=== PATIENT | female | born 1945 | race Two or more races ===

== ENCOUNTER 2021-12-09 20:32 | Emergency (ER) | payer OTHER ==
[~2021-12-09] VITALS: Ht 160 cm; Wt 50.7 kg
[2021-12-09] MEDS ORDERED: ATOR20TA86 PO (21:19)
[2021-12-09] MEDS ORDERED: ASPI-1450 PO (21:19)
[2021-12-09 21:40] LABS: BASOPHILS % (AUTO) 1.3 % (0.0-2.0); HEMATOCRIT 41.8 % (36-46); HEMOGLOBIN 13.7 g/dL (12.0-16.0); LYMPHOCYTES % (AUTO) 19.9 % (22.0-44.0); MEAN CORPUSCULAR HEMOGLOBIN 31.8 pg (26.0-34.0); MEAN CORPUSCULAR HGB CONC 32.7 G/dL (31.0-37.0); MEAN CORPUSCULAR VOLUME 97 fL (80-100); MONOCYTES # (AUTO) 0.4 K/uL (0.1-1.0); MONOCYTES % (AUTO) 8.1 % (2.0-9.0); NEUTROPHILS % (AUTO) 58.7 % (40.0-70.0); PLATELET COUNT (AUTO) 198 K/uL (150-450); RED BLOOD CELL COUNT(AUTO) 4.31 MIL/uL (4.00-5.20); RED CELL DISTRIBUTION WIDTH 13.4 % (11.5-14.5)
[2021-12-09 21:49] LABS: CALCIUM, TOTAL 9.1 mg/dL (8.8-10.5); CREATININE 1.15 mg/dL (0.60-1.30); POTASSIUM 3.8 mmol/L (3.5-5.1)
[2021-12-09 21:54] LABS: ALBUMIN 4.2 g/dL (3.4-5.0); BILIRUBIN,TOTAL 0.5 mg/dL (0.1-1.0); TOTAL PROTEIN, SERUM 7.6 g/dL (6.4-8.2)
[2021-12-09] MEDS ORDERED: SODIUM CHLORIDE 0.9% 1,000 ML IV ONE (22:45)
[2021-12-09] MEDS ORDERED: KETOROLAC TROMETHAMINE 30 MG/ML VIAL IVP ONE (22:45)
[2021-12-09] MEDS ORDERED: DiphenhydrAMINE HCL 50 MG/ML VIAL IVP ONE (22:45)
[2021-12-09] MEDS ORDERED: METOCLOPRAMIDE HCL 5 MG/ML 2 ML VIAL IVP ONE (22:45)
[2021-12-10 01:26] VITALS: BP 159/73
== END 2021-12-10 02:09 | disposition home or self-care (01) ==
LOC: EMS 20:34
DX: R51.9 Headache, unspecified (principal); I11.9 Hypertensive heart disease without heart failure; E78.00 Pure hypercholesterolemia, unspecified
CPT/HCPCS: 99284; 70450; 80053; 83690; 84484; 85025; 36415; 96374; 96375; 96361; J1200; J1885; J2765; J7030

== ENCOUNTER 2022-07-28 19:39 | Emergency (ER) | payer OTHER ==
[~2022-07-28] VITALS: Ht 162.6 cm; Wt 51.0 kg
[~2022-07-28 19:39] MED LIST: ASPI-1450 PO; ATOR20TA PO
[2022-07-28] MEDS ORDERED: AMLO5TAB66 PO (19:47)
[2022-07-28] MEDS ORDERED: HYDR25TA PO (19:47)
[2022-07-28] MEDS ORDERED: LISI40TA9 PO (19:47)
[2022-07-28 21:42] LABS: BASOPHILS % (AUTO) 0.8 % (0.0-2.0); EOSINOPHILS % (AUTO) 4.5 % (1.0-6.0); HEMOGLOBIN 13.3 g/dL (12.0-16.0); LYMPHOCYTES # (AUTO) 2.1 K/uL (1.0-4.8); MEAN CORPUSCULAR HEMOGLOBIN 33.6 pg (26.0-34.0); MEAN CORPUSCULAR HGB CONC 34.2 G/dL (31.0-37.0); MEAN CORPUSCULAR VOLUME 98 fL (80-100); MONOCYTES # (AUTO) 0.8 K/uL (0.1-1.0); MONOCYTES % (AUTO) 12.2 % (2.0-9.0); NEUTROPHILS # (AUTO) 3.4 K/uL (1.8-7.7); NEUTROPHILS % (AUTO) 51.5 % (40.0-70.0); PLATELET COUNT (AUTO) 193 K/uL (150-450); RED BLOOD CELL COUNT(AUTO) 3.97 MIL/uL (4.00-5.20); RED CELL DISTRIBUTION WIDTH 12.4 % (11.5-14.5)
[2022-07-28] MEDS ORDERED: ACETAMINOPHEN 500 MG TABLET PO ONE (21:45)
[2022-07-28 22:00] LABS: ALANINE AMINOTRANSFERASE 30 U/L (12-78); ALBUMIN 3.8 g/dL (3.4-5.0); ALKALINE PHOSPHATASE 121 U/L (46-116); ANION GAP 4 mmol/L (8-16); ASPARTATE AMINOTRANSFERASE 27 U/L (15-37); B-TYPE NATRIURETIC PEPTIDE 44 pg/mL (0-100); BILIRUBIN,TOTAL 0.4 mg/dL (0.1-1.0); CALCIUM, TOTAL 8.9 mg/dL (8.8-10.5); CARBON DIOXIDE 32 mmol/L (22-29); CHLORIDE 86 mmol/L (98-107); CREATININE 0.76 mg/dL (0.60-1.30); GLOMERULAR FILTR. RATE CALC > 60 mL/min (>60); GLUCOSE,RANDOM 123 mg/dL (70-110); POTASSIUM 3.5 mmol/L (3.5-5.1); TOTAL PROTEIN, SERUM 7.5 g/dL (6.4-8.2)
[2022-07-28 22:02] LABS: SODIUM SERUM 122 mmol/L (136-145)
[2022-07-28] MEDS ORDERED: SODIUM CHLORIDE 0.9% 1,000 ML IV ONE (22:15)
[2022-07-29 05:26] VITALS: BP 158/76
== END 2022-07-29 02:36 | disposition short-term general hospital (02) ==
LOC: EMS 19:39
DX: E87.1 Hypo-osmolality and hyponatremia (principal); R51.9 Headache, unspecified; I10 Essential (primary) hypertension; R42 Dizziness and giddiness; R53.1 Weakness; E78.00 Pure hypercholesterolemia, unspecified; I11.9 Hypertensive heart disease without heart failure
CPT/HCPCS: 99285; 96360; 71045; 80053; 83880; 84484; 85025; 36415; 93005; 84295; J7030

== ENCOUNTER 2023-12-28 08:19 | Inpatient (IN) | payer OTHER ==
[~2023-12-28] VITALS: Ht 154.9 cm; Wt 54.8 kg
[~2023-12-28 08:19] MED LIST changes: +AMLO5TAB66 PO; +HYDR25TA PO; +LISI40TA9 PO
[2023-12-28] MEDS ORDERED: GABA-529 PO ×2 (08:25→11:13)
[2023-12-28] MEDS ORDERED: METO50 PO (08:25)
[2023-12-28 09:29] LABS: EOSINOPHILS % (AUTO) 1.1 % (1.0-6.0); HEMATOCRIT 42.9 % (36-46); HEMOGLOBIN 14.4 g/dL (12.0-16.0); LYMPHOCYTES # (AUTO) 1.1 K/uL (1.0-4.8); LYMPHOCYTES % (AUTO) 18.7 % (22.0-44.0); MEAN CORPUSCULAR HEMOGLOBIN 32.2 pg (26.0-34.0); MEAN CORPUSCULAR HGB CONC 33.5 G/dL (31.0-37.0); MEAN CORPUSCULAR VOLUME 96 fL (80-100); MONOCYTES # (AUTO) 0.5 K/uL (0.1-1.0); MONOCYTES % (AUTO) 7.6 % (2.0-9.0); NEUTROPHILS # (AUTO) 4.4 K/uL (1.8-7.7); NEUTROPHILS % (AUTO) 71.6 % (40.0-70.0); PLATELET COUNT (AUTO) 221 K/uL (150-450); RED BLOOD CELL COUNT(AUTO) 4.47 MIL/uL (4.00-5.20); RED CELL DISTRIBUTION WIDTH 13.1 % (11.5-14.5); WHITE BLOOD COUNT (AUTO) 6.1 K/uL (4.5-11.0)
[2023-12-28] MEDS: ACETAMINOPHEN 500 MG TABLET PO ONE (09:36)
[2023-12-28 10:02] LABS: ANION GAP 6 mmol/L (8-16); CALCIUM, TOTAL 8.1 mg/dL (8.8-10.5); CARBON DIOXIDE 29 mmol/L (22-29); CHLORIDE 95 mmol/L (98-107); CREATININE 0.73 mg/dL (0.60-1.30); GLOMERULAR FILTR. RATE CALC > 60 mL/min (>60); GLUCOSE,RANDOM 92 mg/dL (70-110); POTASSIUM 4.3 mmol/L (3.5-5.1); SODIUM SERUM 130 mmol/L (136-145); UREA NITROGEN, BLOOD 18 mg/dL (7-18)
[2023-12-28 10:13] LABS: TROPONIN I-HIGH SENSITIVITY 6 ng/L (<51)
[2023-12-28] MEDS ORDERED: LISI40TA9 PO (11:13)
[2023-12-28] MEDS ORDERED: HYDR25TA PO (11:13)
[2023-12-28] MEDS ORDERED: AMLO5TAB66 PO (11:13)
[2023-12-28] MEDS: HYDROCHLOROTHIAZIDE 25 MG TABLET PO ONE (11:21)
[2023-12-28] MEDS: AmLODIPine BESYLATE 5 MG TABLET PO ONE (11:21)
[2023-12-28] MEDS ORDERED: ONDANSETRON HCL 4 MG/2 ML VIAL IVP PRN (12:30)
[2023-12-28] MEDS ORDERED: ZOLPIDEM TARTRATE 5 MG TABLET PO PRN (12:30)
[2023-12-28] MEDS ORDERED: MAGNESIUM HYDROXIDE SUSPENSION 30 ML UDCUP PO PRN (12:30)
[2023-12-28] MEDS ORDERED: HYDROCODONE/ACETAMINOPHEN 5-325 MG TABLET PO PRN (12:30)
[2023-12-28] MEDS ORDERED: BISACODYL 10 MG RECTAL RECTAL SUPPOSITORY PR PRN (12:30)
[2023-12-28] MEDS ORDERED: MORPHINE SULFATE 2 MG/ML SYRINGE IVP PRN (12:30)
[2023-12-28] MEDS: HydrALAZINE HCL 20 MG/ML VIAL IVP PRN (13:31)
[2023-12-28 13:39] VITALS: BP 218/83; PULSE 60; RESP 16; TEMP 97.3; O2SAT 100
[2023-12-28] MEDS: METOPROLOL TARTRATE 50 MG TABLET PO SCH (14:29)
[2023-12-28 14:30] VITALS: BP 156/71; PULSE 71; RESP 18; O2SAT 98
[2023-12-28] MEDS: HEPARIN SODIUM,PORCINE 5,000 UNITS/ML VIAL SQ SCH (15:56)
[2023-12-28 15:57] VITALS: BP 154/68; PULSE 58; RESP 18; TEMP 97.6; O2SAT 100
[2023-12-28 19:51] VITALS: BP 129/50; PULSE 56; RESP 18; TEMP 97.9; O2SAT 99
[2023-12-28] MEDS: DOCUSATE SODIUM 100 MG CAPSULE PO SCH (20:42)
[2023-12-28] MEDS: GABAPENTIN 100 MG CAPSULE PO SCH (20:42)
[2023-12-28 23:35] VITALS: BP 178/71; PULSE 53; RESP 17; TEMP 97.8; O2SAT 99
[2023-12-29] MEDS: ACETAMINOPHEN 325 MG TABLET PO PRN (00:30)
[2023-12-29 01:14] VITALS: BP 145/67
[2023-12-29 04:47] VITALS: BP 147/61; PULSE 61; RESP 18; TEMP 97.8; O2SAT 98
[2023-12-29 07:18] LABS: BASOPHILS % (AUTO) 0.7 % (0.0-2.0); EOSINOPHILS % (AUTO) 0.7 % (1.0-6.0); HEMATOCRIT 45.9 % (36-46); HEMOGLOBIN 15.8 g/dL (12.0-16.0); LYMPHOCYTES # (AUTO) 1.8 K/uL (1.0-4.8); LYMPHOCYTES % (AUTO) 26.9 % (22.0-44.0); MEAN CORPUSCULAR HEMOGLOBIN 32.6 pg (26.0-34.0); MEAN CORPUSCULAR HGB CONC 34.4 G/dL (31.0-37.0); MEAN CORPUSCULAR VOLUME 95 fL (80-100); MONOCYTES # (AUTO) 0.5 K/uL (0.1-1.0); MONOCYTES % (AUTO) 7.3 % (2.0-9.0); NEUTROPHILS # (AUTO) 4.4 K/uL (1.8-7.7); NEUTROPHILS % (AUTO) 64.4 % (40.0-70.0); PLATELET COUNT (AUTO) 241 K/uL (150-450); RED BLOOD CELL COUNT(AUTO) 4.84 MIL/uL (4.00-5.20); RED CELL DISTRIBUTION WIDTH 13.2 % (11.5-14.5); WHITE BLOOD COUNT (AUTO) 6.8 K/uL (4.5-11.0)
[2023-12-29 07:30] LABS: ANION GAP 11 mmol/L (8-16); CALCIUM, TOTAL 9.2 mg/dL (8.8-10.5); CARBON DIOXIDE 30 mmol/L (22-29); CHLORIDE 90 mmol/L (98-107); CREATININE 0.78 mg/dL (0.60-1.30); GLOMERULAR FILTR. RATE CALC > 60 mL/min (>60); GLUCOSE,RANDOM 123 mg/dL (70-110); POTASSIUM 3.1 mmol/L (3.5-5.1); SODIUM SERUM 130 mmol/L (136-145); UREA NITROGEN, BLOOD 17 mg/dL (7-18)
[2023-12-29 08:00] VITALS: BP 145/69; PULSE 77; RESP 18; TEMP 98.1; O2SAT 98
[2023-12-29] MEDS: HYDROCHLOROTHIAZIDE 25 MG TABLET PO SCH (08:36)
[2023-12-29] MEDS: ATORVASTATIN CALCIUM 20 MG TABLET PO SCH (08:36)
[2023-12-29] MEDS: AmLODIPine BESYLATE 5 MG TABLET PO SCH (08:37)
[2023-12-29] MEDS: PANTOPRAZOLE SODIUM 40 MG DR TABLET PO SCH (08:37)
[2023-12-29 12:00] VITALS: BP 142/61; PULSE 62; RESP 18; TEMP 98; O2SAT 96
[2023-12-29] MEDS ORDERED: POTASSIUM CHL 10 MEQ/WATER 50 ML IV PRN (14:15)
[2023-12-29] MEDS: POTASSIUM CHLORIDE 20 MEQ ER TABLET PO PRN (15:05)
[2023-12-29 16:00] VITALS: BP 137/69; PULSE 64; RESP 18; TEMP 97.8; O2SAT 96
[2023-12-29 20:25] VITALS: BP 193/81; PULSE 83; RESP 18; TEMP 97.3; O2SAT 97
[2023-12-30 00:18] VITALS: BP 130/62; PULSE 78; RESP 19; TEMP 97.5; O2SAT 99
[2023-12-30 04:35] VITALS: BP 155/69; PULSE 83; RESP 18; TEMP 97.4; O2SAT 100
[2023-12-30 06:42] LABS: BASOPHILS % (AUTO) 1.4 % (0.0-2.0); EOSINOPHILS % (AUTO) 0.1 % (1.0-6.0); HEMATOCRIT 44.9 % (36-46); HEMOGLOBIN 15.6 g/dL (12.0-16.0); LYMPHOCYTES # (AUTO) 1.4 K/uL (1.0-4.8); MEAN CORPUSCULAR HEMOGLOBIN 32.5 pg (26.0-34.0); MEAN CORPUSCULAR HGB CONC 34.6 G/dL (31.0-37.0); MEAN CORPUSCULAR VOLUME 94 fL (80-100); MONOCYTES # (AUTO) 0.5 K/uL (0.1-1.0); MONOCYTES % (AUTO) 8.8 % (2.0-9.0); NEUTROPHILS # (AUTO) 3.4 K/uL (1.8-7.7); NEUTROPHILS % (AUTO) 63.7 % (40.0-70.0); PLATELET COUNT (AUTO) 231 K/uL (150-450); RED BLOOD CELL COUNT(AUTO) 4.79 MIL/uL (4.00-5.20); RED CELL DISTRIBUTION WIDTH 13.3 % (11.5-14.5); WHITE BLOOD COUNT (AUTO) 5.3 K/uL (4.5-11.0)
[2023-12-30 06:57] LABS: ANION GAP 9 mmol/L (8-16); CALCIUM, TOTAL 9.1 mg/dL (8.8-10.5); CARBON DIOXIDE 30 mmol/L (22-29); CHLORIDE 90 mmol/L (98-107); GLOMERULAR FILTR. RATE CALC > 60 mL/min (>60); GLUCOSE,RANDOM 118 mg/dL (70-110); POTASSIUM 3.6 mmol/L (3.5-5.1); SODIUM SERUM 129 mmol/L (136-145); UREA NITROGEN, BLOOD 19 mg/dL (7-18)
[2023-12-30 08:00] VITALS: BP 141/47; PULSE 95; RESP 18; TEMP 98; O2SAT 97
[2023-12-30] MEDS: METOPROLOL SUCCINATE 50 MG ER TABLET PO SCH (08:13)
[2023-12-30 12:00] VITALS: BP 116/55; PULSE 74; RESP 18; TEMP 98.2; O2SAT 99
[2023-12-30 16:00] VITALS: BP 142/68; PULSE 74; RESP 18; TEMP 98.1; O2SAT 95
[2023-12-30 20:45] VITALS: BP 121/68; PULSE 68; RESP 18; TEMP 97.5; O2SAT 98
[2023-12-31] VITALS: BP 149/63; PULSE 60; RESP 18; TEMP 98; O2SAT 100
[2023-12-31 04:00] VITALS: BP 152/78; PULSE 72; RESP 18; TEMP 97.9; O2SAT 96
[2023-12-31 07:09] LABS: ANION GAP 6 mmol/L (8-16); CALCIUM, TOTAL 8.7 mg/dL (8.8-10.5); CARBON DIOXIDE 31 mmol/L (22-29); CHLORIDE 93 mmol/L (98-107); CREATININE 0.76 mg/dL (0.60-1.30); GLOMERULAR FILTR. RATE CALC > 60 mL/min (>60); GLUCOSE,RANDOM 108 mg/dL (70-110); POTASSIUM 3.4 mmol/L (3.5-5.1); SODIUM SERUM 130 mmol/L (136-145); UREA NITROGEN, BLOOD 23 mg/dL (7-18)
[2023-12-31 07:10] LABS: BASOPHILS % (AUTO) 0.8 % (0.0-2.0); HEMOGLOBIN 15.2 g/dL (12.0-16.0); LYMPHOCYTES # (AUTO) 1.5 K/uL (1.0-4.8); LYMPHOCYTES % (AUTO) 28.7 % (22.0-44.0); MEAN CORPUSCULAR HEMOGLOBIN 32.5 pg (26.0-34.0); MEAN CORPUSCULAR HGB CONC 34.4 G/dL (31.0-37.0); MEAN CORPUSCULAR VOLUME 95 fL (80-100); MONOCYTES # (AUTO) 0.6 K/uL (0.1-1.0); MONOCYTES % (AUTO) 11.7 % (2.0-9.0); NEUTROPHILS % (AUTO) 57.8 % (40.0-70.0); PLATELET COUNT (AUTO) 221 K/uL (150-450); RED BLOOD CELL COUNT(AUTO) 4.66 MIL/uL (4.00-5.20); RED CELL DISTRIBUTION WIDTH 13.1 % (11.5-14.5); WHITE BLOOD COUNT (AUTO) 5.2 K/uL (4.5-11.0)
[2023-12-31 08:00] VITALS: BP 153/65; PULSE 60; RESP 18; TEMP 97.9; O2SAT 99
[2023-12-31] MEDS: AmLODIPine BESYLATE 5 MG TABLET PO SCH (09:03)
[2023-12-31] MEDS ORDERED: METO-391 PO (11:52)
[2023-12-31] MEDS ORDERED: LISI40TA9 PO (11:52)
[2023-12-31] MEDS ORDERED: AMLO-257 PO (11:52)
[2023-12-31 12:00] VITALS: BP 145/61; PULSE 63; RESP 18; TEMP 97.8; O2SAT 97
== END 2023-12-31 15:45 | disposition home or self-care (01) | DRG 641 ==
LOC: EMS 08:19 → EDH 12:00 → 5S 13:18
PROVIDERS: ADMIT Internal Medicine; ATTEND Internal Medicine
DX: E87.1 Hypo-osmolality and hyponatremia (principal); I16.0 Hypertensive urgency; E87.6 Hypokalemia; F02.B0 Dementia in other diseases classified elsewhere, moderate, without behavioral disturbance, psychotic disturbance, mood disturbance, and anxiety; E78.5 Hyperlipidemia, unspecified; E78.00 Pure hypercholesterolemia, unspecified; I10 Essential (primary) hypertension; G30.9 Alzheimer's disease, unspecified; Z79.899 Other long term (current) drug therapy; T50.2X5A Adverse effect of carbonic-anhydrase inhibitors, benzothiadiazides and other diuretics, initial encounter; Y92.89 Other specified places as the place of occurrence of the external cause
CPT/HCPCS: 70450; 80048; 84132; 84484; 85025; 93005; 97161; 99285; J0360; J1644